=== PATIENT | female | born 1985 | race Caucasian/White ===

== ENCOUNTER 2018-05-17 20:36 | Emergency (ER) | payer MEDICAID ==
[~2018-05-17] VITALS: Ht 175.3 cm; Wt 86.2 kg
[2018-05-17] MEDS ORDERED: Norco 5-325 Ta1 EACH PO (22:55)
[2018-05-17] MEDS ORDERED: CRUTCH4 XX (22:55)
== END 2018-05-17 23:06 | disposition home or self-care (01) ==
LOC: ER 20:36
DX: M25.562 Pain in left knee (principal); X50.9XXA Other and unspecified overexertion or strenuous movements or postures, initial encounter
CPT/HCPCS: 29505; 73564; 99283-25; A9270-GY